=== PATIENT | female | born 1975 | race Caucasian/White ===

== ENCOUNTER 2016-11-15 08:56 | Inpatient (IN) | payer SELFPAY ==
[2016-11-15] VITALS (24 sets, daily range): BP systolic 101–147; BP diastolic 59–91
[~2016-11-15] VITALS: Ht 167.6 cm; Wt 100.2 kg
[2016-11-15] MEDS ORDERED: ONDANSETRON HCL 4MG/2ML VIAL IV STA (09:21)
[2016-11-15] MEDS ORDERED: SODIUM CHLORIDE 0.9% 1,000 ML IV ONE ×4 (09:21→09:24)
[2016-11-15 09:44] LABS: BG CARBOXYHEMOGLOBIN 0.3 % (0.5-1.5); BG DEOXYHEMOGLOBIN 1.7 % (0.0-5.0); BG HCO3 ACT 7.6 mmol/L (22.0-26.0); BG METHEMOGLOBIN 0.4 % (0.0-1.5); BG OXYGEN SATURATION 98.3 % (92.0-98.5); BG OXYHEMOGLOBIN 97.6 % (94.0-97.0); BG PCO2 15.2 mmHg (35.0-45.0); BG PH 7.314 (7.350-7.450); BG PO2 123.4 mmHg (75.0-100.0); BG SAMPLE SITE RIGHT RADIAL; BG TOTAL HEMOGLOBIN 18.2 g/dL (12.0-18.0); BG VENT MODE ROOM AIR
[2016-11-15 09:47] LABS: BASOPHILS % 0.2 % (0.0-2.0); EOSINOPHILS % 0.2 % (0.0-5.0); HEMATOCRIT. 53.1 % (36.0-48.0); HEMOGLOBIN. 17.7 g/dL (12.0-16.0); LYMPHOCYTES % 8.2 % (20.0-50.0); MEAN CORPUSCULAR HEMOGLOBIN 29.4 pg (28.0-32.0); MEAN CORPUSCULAR VOLUME 88.3 fL (81.0-99.0); MEAN PLATELET VOLUME 10.2 fl (7.4-10.4); MONOCYTES % 7.6 % (2.0-8.0); NEUTROPHILS % 83.8 % (40.0-76.0); PLATELET 256 x1000/uL (130-400); RED BLOOD CELL COUNT 6.01 mill/uL (4.2-5.4); RED CELL DISTRIBUTION WIDTH 16.1 % (11.6-14.6)
[2016-11-15 09:50] LABS: CLARITY URINE CLOUDY (CLEAR); COLOR URINE YELLOW (YELLOW); GLUCOSE URINE 3+ (NEGATIVE); KETONES URINE 4+ (NEGATIVE); LEUKOCYTE ESTERASE URINE NEGATIVE (NEGATIVE); NITRITE URINE NEGATIVE (NEGATIVE); OCCULT BLOOD URINE 3+ (NEGATIVE); PROTEIN URINE 2+ (NEGATIVE); SPECIFIC GRAVITY URINE 1.031 (1.005-1.030); UROBILINOGEN URINE 0.2 E.U./dL (0.2-1.0)
[2016-11-15 09:55] LABS: INR 1.3; PROTHROMBIN TIME 13.4 sec
[2016-11-15 10:00] LABS: CHLORIDE 91 mEq/L (98-107); PHOSPHORUS 3.7 mg/dL (2.5-4.9)
[2016-11-15] MEDS ORDERED: INSULIN REGULAR (DRIP) 100 UNITS in SODIUM CHLORIDE 0.9% 100 ML IV ONE ×4 (10:00)
[2016-11-15 10:05] LABS: CARBON DIOXIDE 9 mEq/L (21-32); TROPONIN I < 0.02 ng/mL (0.00-0.04)
[2016-11-15] MEDS ORDERED: POTASSIUM CHLORIDE 20MEQ TABLET SR PO ONE (10:15)
[2016-11-15] MEDS ORDERED: KCL 20MEQ/100ML PREMIX 100 ML IV ONE (10:15)
[2016-11-15] MEDS ORDERED: DIPHENHYDRAMINE 50MG/ML VIAL IV PRN (11:30)
[2016-11-15] MEDS ORDERED: ACETAMINOPHEN 325MG TABLET PO PRN (11:30)
[2016-11-15] MEDS ORDERED: DOCUSATE SODIUM 100MG CAPSULE PO PRN (11:30)
[2016-11-15] MEDS ORDERED: MAGNESIUM/ALUMINUM HYDROXIDE/SIMETHICONE 30ML UDC PO PRN (11:30)
[2016-11-15] MEDS ORDERED: CLONIDINE 0.1MG TABLET PO PRN (11:30)
[2016-11-15] MEDS ORDERED: DEXTROSE 50% WATER 50ML SYRINGE IV PRN ×2 (11:30)
[2016-11-15 11:32] LABS: PLATELET ESTIMATE NORMAL
[2016-11-15] MEDS: BLOOD SUGAR DIAGNOSTIC STRIP TEST SCH ×13 (12:29→23:30)
[2016-11-15] MEDS ORDERED: INSULIN REGULAR (DRIP) 100 UNITS in SODIUM CHLORIDE 0.9% 99 ML IV SCH (12:30)
[2016-11-15] MEDS ORDERED: SODIUM CHLORIDE 0.9% 1,000 ML IV SCH (12:30)
[2016-11-15] MEDS: SODIUM CHLORIDE 0.9% 1,000 ML IV SCH ×3 (12:49→16:07)
[2016-11-15 13:45] LABS: CHLORIDE 111 mEq/L (98-107)
[2016-11-15 13:51] LABS: CARBON DIOXIDE 11 mEq/L (21-32)
[2016-11-15] MEDS ORDERED: LEVOFLOXACIN 500MG PREMIX 100 ML IV SCH (15:00)
[2016-11-15 16:02] LABS: CARBON DIOXIDE 11 mEq/L (21-32); CHLORIDE 117 mEq/L (98-107)
[2016-11-15] MEDS ORDERED: DEXT 5% WATER + KCL 40MEQ/L 250 ML IV ONE (16:30)
[2016-11-15] MEDS: DEXT 5%/0.45% NACL 1000ML 1,000 ML IV PRN (16:45)
[2016-11-15] MEDS: LEVOFLOXACIN 500MG PREMIX 100 ML IV SCH (16:53)
[2016-11-15] MEDS ORDERED: POTASSIUM CHLORIDE INJ 40 MEQ in DEXT 5% WATER 250 ML IV NR (17:30)
[2016-11-15] MEDS ORDERED: POTASSIUM CHLORIDE 20MEQ TABLET SR PO SCH (18:30)
[2016-11-16] VITALS (47 sets, daily range): BP systolic 98–147; BP diastolic 36–89
[2016-11-16] MEDS: BLOOD SUGAR DIAGNOSTIC STRIP TEST SCH ×7 (00:30→20:19)
[2016-11-16] MEDS: ONDANSETRON HCL 4MG/2ML VIAL IV PRN ×2 (01:42→08:46)
[2016-11-16] MEDS: DEXT 5%/0.45% NACL 1000ML 1,000 ML IV PRN (01:46)
[2016-11-16 06:07] LABS: BASOPHILS % 0.6 % (0.0-2.0); EOSINOPHILS % 0.3 % (0.0-5.0); HEMATOCRIT. 41.9 % (36.0-48.0); HEMOGLOBIN. 14.7 g/dL (12.0-16.0); LYMPHOCYTES % 17.9 % (20.0-50.0); MEAN CORPUSCULAR HEMOGLOBIN 29.7 pg (28.0-32.0); MEAN CORPUSCULAR VOLUME 84.7 fL (81.0-99.0); MEAN PLATELET VOLUME 10.2 fl (7.4-10.4); NEUTROPHILS % 69.2 % (40.0-76.0); PLATELET 237 x1000/uL (130-400); RED BLOOD CELL COUNT 4.94 mill/uL (4.2-5.4); RED CELL DISTRIBUTION WIDTH 15.8 % (11.6-14.6)
[2016-11-16 06:42] LABS: AMYLASE 64 IU/L (25-115); CARBON DIOXIDE 22 mEq/L (21-32); CHLORIDE 105 mEq/L (98-107)
[2016-11-16 06:53] LABS: HDL CHOLESTEROL 36 mg/dL (40-59); LDL CHOLESTEROL 84 mg/dL (5-100)
[2016-11-16] MEDS: INSULIN LISPRO 100 UNITS/ML SUBCUT SCH ×4 (07:00→20:23)
[2016-11-16] MEDS ORDERED: DEXTROSE 50% WATER 50ML SYRINGE IV PRN (07:00)
[2016-11-16] MEDS: PANTOPRAZOLE SODIUM 40 MG/VIAL IV SCH (08:33)
[2016-11-16] MEDS ORDERED: MAGNESIUM 2 G PREMIX 50 ML IV NR (09:30)
[2016-11-16] MEDS ORDERED: POTASSIUM CHLORIDE INJ 40 MEQ in DEXT 5% WATER 250 ML IV NR ×2 (09:30→13:30)
[2016-11-16] MEDS: LEVOFLOXACIN 500MG PREMIX 100 ML IV SCH (17:47)
[2016-11-16] MEDS ORDERED: INSULIN DETEMIR UD 100 UNITS/ML SYR SUBCUT SCH (22:00)
[2016-11-17] VITALS (8 sets, daily range): BP systolic 105–135; BP diastolic 68–81
[2016-11-17] MEDS: INSULIN LISPRO 100 UNITS/ML SUBCUT SCH ×4 (06:38→21:00)
[2016-11-17] MEDS: BLOOD SUGAR DIAGNOSTIC STRIP TEST SCH ×4 (06:38→21:00)
[2016-11-17 06:43] LABS: BASOPHILS % 0.4 % (0.0-2.0); HEMOGLOBIN. 14.6 g/dL (12.0-16.0); LYMPHOCYTES % 25.9 % (20.0-50.0); MEAN CORPUSCULAR HEMOGLOBIN 29.6 pg (28.0-32.0); MEAN CORPUSCULAR VOLUME 83.3 fL (81.0-99.0); MEAN PLATELET VOLUME 9.6 fl (7.4-10.4); MONOCYTES % 14.4 % (2.0-8.0); NEUTROPHILS % 58.3 % (40.0-76.0); PLATELET 210 x1000/uL (130-400); RED BLOOD CELL COUNT 4.93 mill/uL (4.2-5.4); RED CELL DISTRIBUTION WIDTH 15.2 % (11.6-14.6)
[2016-11-17 06:46] LABS: CARBON DIOXIDE 21 mEq/L (21-32); CHLORIDE 92 mEq/L (98-107)
[2016-11-17] MEDS: METFORMIN HCL 500MG TABLET PO SCH ×3 (07:40→18:11)
[2016-11-17] MEDS: PANTOPRAZOLE SODIUM 40 MG/VIAL IV SCH ×2 (08:55→09:42)
[2016-11-17] MEDS: POTASSIUM CHLORIDE 20MEQ TABLET SR PO NR ×2 (08:56→11:15)
[2016-11-17] MEDS ORDERED: POTASSIUM CHLORIDE 20MEQ TABLET SR PO NR ×3 (10:00→17:45)
[2016-11-17] MEDS: ONDANSETRON HCL 4MG/2ML VIAL IV PRN (17:10)
[2016-11-17] MEDS: LEVOFLOXACIN 500MG PREMIX 100 ML IV SCH (17:20)
[2016-11-18] MEDS ORDERED: METFORMIN HCL 500MG SR TABLET 24HR PO SCH (17:00)
== END 2016-11-17 21:00 | disposition home or self-care (01) | DRG 420 ==
LOC: ER 09:47 → MICUSO 10:31 → 8WST 11-17 00:25
PROVIDERS: ADMIT Internal Medicine Nephrology; ATTEND Internal Medicine Nephrology
DX: E13.10 Other specified diabetes mellitus with ketoacidosis without coma (principal); K85.90 Acute pancreatitis without necrosis or infection, unspecified; E86.0 Dehydration; E66.9 Obesity, unspecified; I12.9 Hypertensive chronic kidney disease with stage 1 through stage 4 chronic kidney disease, or unspecified chronic kidney disease; E87.6 Hypokalemia; D72.829 Elevated white blood cell count, unspecified; N18.9 Chronic kidney disease, unspecified; Z83.3 Family history of diabetes mellitus; Z68.35 Body mass index [BMI] 35.0-35.9, adult; Z87.442 Personal history of urinary calculi
CPT/HCPCS: 36415; 36600; 71010; 76700; 78227; 80048; 80053; 80061; 81001; 81025; 82010; 82150; 82375; 82805; 82962; 83036; 83605; 83690; 83735; 83880; 84100; 84132; 84443; 84484; 85025; 85610; 87040; 87086; 93005; 96361; 96365; 96367; 96375; 99285; A9537; C9113; J1815; J1956; J2405; J3475; J3480; J7030; J7040; J7042; J7050; J7060

== ENCOUNTER 2016-11-25 08:59 | Inpatient (IN) | payer SELFPAY ==
[2016-11-25] VITALS (12 sets, daily range): BP systolic 107–141; BP diastolic 51–80
[~2016-11-25] VITALS: Ht 160 cm; Wt 98.0 kg
[2016-11-25] MEDS ORDERED: SODIUM CHLORIDE 0.9% 1,000 ML IV ONE (09:47)
[2016-11-25 10:04] LABS: BASOPHILS % 0.8 % (0.0-2.0); EOSINOPHILS % 0.3 % (0.0-5.0); HEMATOCRIT. 48.8 % (36.0-48.0); HEMOGLOBIN. 16.6 g/dL (12.0-16.0); LYMPHOCYTES % 17.6 % (20.0-50.0); MEAN CORPUSCULAR HEMOGLOBIN 29.5 pg (28.0-32.0); MEAN CORPUSCULAR VOLUME 86.8 fL (81.0-99.0); NEUTROPHILS % 69.3 % (40.0-76.0); PLATELET 390 x1000/uL (130-400); RED BLOOD CELL COUNT 5.62 mill/uL (4.2-5.4)
[2016-11-25 10:19] LABS: AMYLASE 43 IU/L (25-115); CARBON DIOXIDE 21 mEq/L (21-32); CHLORIDE 89 mEq/L (98-107); PHOSPHORUS 2.3 mg/dL (2.5-4.9); TROPONIN I < 0.02 ng/mL (0.00-0.04)
[2016-11-25 10:21] LABS: BG CARBOXYHEMOGLOBIN 0.3 % (0.5-1.5); BG DEOXYHEMOGLOBIN 1.9 % (0.0-5.0); BG HCO3 ACT 13.6 mmol/L (22.0-26.0); BG METHEMOGLOBIN 0.3 % (0.0-1.5); BG OXYGEN SATURATION 98.1 % (92.0-98.5); BG OXYHEMOGLOBIN 97.5 % (94.0-97.0); BG PCO2 23.7 mmHg (35.0-45.0); BG PH 7.378 (7.350-7.450); BG SAMPLE SITE RIGHT RADIAL; BG TOTAL HEMOGLOBIN 17.6 g/dL (12.0-18.0); BG VENT MODE ROOM AIR
[2016-11-25 10:27] LABS: BETA HYDROXYBUTYRATE 9.5 mMol/L (0.0-0.3)
[2016-11-25 10:29] LABS: HCG SCREEN NEGATIVE
[2016-11-25 10:34] LABS: CLARITY URINE CLEAR (CLEAR); COLOR URINE YELLOW (YELLOW); GLUCOSE URINE 3+ (NEGATIVE); KETONES URINE 4+ (NEGATIVE); LEUKOCYTE ESTERASE URINE NEGATIVE (NEGATIVE); NITRITE URINE NEGATIVE (NEGATIVE); OCCULT BLOOD URINE TRACE (NEGATIVE); PH URINE 6.5 (4.5-8.0); PROTEIN URINE 1+ (NEGATIVE)
[2016-11-25] MEDS ORDERED: INSULIN REGULAR (DRIP) 100 UNITS in SODIUM CHLORIDE 0.9% 100 ML IV ONE (11:00)
[2016-11-25] MEDS: INSULIN REGULAR (DRIP) 100 UNITS in SODIUM CHLORIDE 0.9% 100 ML IV SCH ×2 (11:25→12:10)
[2016-11-25] MEDS ORDERED: CEFTRIAXONE 1 G PREMIX 50 ML IV STA (12:16)
[2016-11-25] MEDS ORDERED: DEXTROSE 50% WATER 50ML SYRINGE IV PRN ×3 (13:00→19:15)
[2016-11-25] MEDS: BLOOD SUGAR DIAGNOSTIC STRIP TEST SCH ×10 (13:14→21:23)
[2016-11-25] MEDS ORDERED: HYDROCODONE/ACETAMINOPHEN 5/325MG TABLET PO PRN (13:30)
[2016-11-25] MEDS ORDERED: IPRATROPIUM/ALBUTEROL 0.5-3(2.5)MG/3ML NEB INH PRN (13:30)
[2016-11-25] MEDS ORDERED: NA PHOS,M-B/NA PHOS,DI-BA ENEMA 118ML PR PRN (13:30)
[2016-11-25] MEDS ORDERED: ONDANSETRON HCL 4MG/2ML VIAL IV PRN (13:30)
[2016-11-25] MEDS ORDERED: ACETAMINOPHEN 650MG SUPP PR PRN (13:30)
[2016-11-25] MEDS ORDERED: CLONIDINE 0.1MG TABLET PO PRN (13:30)
[2016-11-25] MEDS ORDERED: ACETAMINOPHEN 325MG TABLET PO PRN (13:30)
[2016-11-25] MEDS ORDERED: ACETAMINOPHEN 650MG/20.3ML UDC GT PRN (13:30)
[2016-11-25] MEDS ORDERED: DIPHENHYDRAMINE 50MG/ML VIAL IV PRN (13:30)
[2016-11-25] MEDS ORDERED: MAGNESIUM/ALUMINUM HYDROXIDE/SIMETHICONE 30ML UDC PO PRN (13:30)
[2016-11-25] MEDS ORDERED: SODIUM CHLORIDE 0.45% 1,000 ML IV SCH ×2 (13:39→15:00)
[2016-11-25] MEDS ORDERED: LIDOCAINE HCL/PF 1% 2ML VIAL ONE (13:55)
[2016-11-25] MEDS ORDERED: ENOXAPARIN 40MG/0.4ML SYR SUBCUT SCH (14:00)
[2016-11-25] MEDS ORDERED: SODIUM CHLORIDE 0.9% 1,000 ML IV SCH (14:00)
[2016-11-25] MEDS ORDERED: INSULIN REGULAR (DRIP) 100 UNITS in SODIUM CHLORIDE 0.9% 100 ML IV SCH (14:00)
[2016-11-25] MEDS: SODIUM CHLORIDE 0.9% INJ 3ML FLUSH IVF SCH ×2 (14:07→21:30)
[2016-11-25] MEDS ORDERED: PNEUMOCOCCAL 23-VAL P-SAC VAC 0.5 ML IM ONE (20:00)
[2016-11-25 20:26] LABS: CLARITY URINE CLEAR (CLEAR); COLOR URINE YELLOW (YELLOW); GLUCOSE URINE 3+ (NEGATIVE); KETONES URINE 4+ (NEGATIVE); LEUKOCYTE ESTERASE URINE NEGATIVE (NEGATIVE); NITRITE URINE NEGATIVE (NEGATIVE); OCCULT BLOOD URINE TRACE (NEGATIVE); PH URINE 6.5 (4.5-8.0); PROTEIN URINE 2+ (NEGATIVE); SPECIFIC GRAVITY URINE 1.032 (1.005-1.030)
[2016-11-25] MEDS: INSULIN LISPRO 100 UNITS/ML SUBCUT SCH (21:00)
[2016-11-25] MEDS ORDERED: CEFTRIAXONE 1 G PREMIX 50 ML IV SCH (21:00)
[2016-11-25 21:28] LABS: *AMPHETAMINES SCREEN URINE NEGATIVE (NEGATIVE); *BARBITURATES SCREEN URINE NEGATIVE (NEGATIVE); *BENZODIAZEPINES SCREEN URINE NEGATIVE (NEGATIVE); *COCAINE SCREEN URINE NEGATIVE (NEGATIVE); CANNABINOID URINE SCREEN NEGATIVE (NEGATIVE); METHADONE URINE SCREEN NEGATIVE (NEGATIVE); OPIATES URINE SCREEN NEGATIVE (NEGATIVE); PHENCYCLIDINE URINE SCREEN NEGATIVE (NEGATIVE)
[2016-11-25] MEDS: POTASSIUM CHLORIDE INJ 10 MEQ in DEXT 5%/0.45% NACL 1000ML 1,000 ML IV SCH (21:30)
[2016-11-26] VITALS (14 sets, daily range): BP systolic 99–123; BP diastolic 44–82
[2016-11-26] MEDS: POTASSIUM CHLORIDE INJ 10 MEQ in DEXT 5%/0.45% NACL 1000ML 1,000 ML IV SCH (04:09)
[2016-11-26 04:40] LABS: BASOPHILS % 0.6 % (0.0-2.0); EOSINOPHILS % 1.2 % (0.0-5.0); HEMATOCRIT. 39.6 % (36.0-48.0); HEMOGLOBIN. 13.5 g/dL (12.0-16.0); LYMPHOCYTES % 33.7 % (20.0-50.0); MEAN CORPUSCULAR HEMOGLOBIN 29.5 pg (28.0-32.0); MEAN CORPUSCULAR VOLUME 86.5 fL (81.0-99.0); MEAN PLATELET VOLUME 7.9 fl (7.4-10.4); MONOCYTES % 13.4 % (2.0-8.0); NEUTROPHILS % 51.1 % (40.0-76.0); PLATELET 299 x1000/uL (130-400); RED BLOOD CELL COUNT 4.58 mill/uL (4.2-5.4); RED CELL DISTRIBUTION WIDTH 16.1 % (11.6-14.6)
[2016-11-26 04:57] LABS: CARBON DIOXIDE 19 mEq/L (21-32); CHLORIDE 95 mEq/L (98-107); HDL CHOLESTEROL 27 mg/dL (40-59); LDL CHOLESTEROL 102 mg/dL (5-100)
[2016-11-26] MEDS: SODIUM CHLORIDE 0.9% INJ 3ML FLUSH IVF SCH ×3 (05:10→21:21)
[2016-11-26] MEDS ORDERED: POTASSIUM CHLORIDE INJ 40 MEQ in DEXT 5% WATER 250 ML IV NR (05:45)
[2016-11-26] MEDS: BLOOD SUGAR DIAGNOSTIC STRIP TEST SCH ×4 (08:37→20:11)
[2016-11-26] MEDS: ENOXAPARIN 30MG/0.3ML SYR SUBCUT SCH ×2 (08:40→21:01)
[2016-11-26] MEDS: INSULIN LISPRO 100 UNITS/ML SUBCUT SCH ×4 (08:41→21:02)
[2016-11-26] MEDS ORDERED: INSULIN DETEMIR UD 100 UNITS/ML SYR SUBCUT SCH (12:30)
[2016-11-26] MEDS ORDERED: LEVVL SUBCUT (16:20)
[2016-11-26] MEDS ORDERED: POTASSIUM CHLORIDE 20MEQ TABLET SR PO NR ×2 (16:30→21:00)
[2016-11-26] MEDS: INSULIN DETEMIR UD 100 UNITS/ML SYR SUBCUT SCH (21:03)
[2016-11-27] VITALS: BP 118/86
[2016-11-27 04:00] VITALS: BP 114/81
[2016-11-27] MEDS: BLOOD SUGAR DIAGNOSTIC STRIP TEST SCH ×3 (06:16→16:20)
[2016-11-27] MEDS: INSULIN LISPRO 100 UNITS/ML SUBCUT SCH ×3 (06:32→17:50)
[2016-11-27 08:00] VITALS: BP 118/76
[2016-11-27 08:48] LABS: CARBON DIOXIDE 26 mEq/L (21-32); CHLORIDE 95 mEq/L (98-107)
[2016-11-27] MEDS: ENOXAPARIN 30MG/0.3ML SYR SUBCUT SCH (09:08)
[2016-11-27] MEDS: INSULIN DETEMIR UD 100 UNITS/ML SYR SUBCUT SCH (09:09)
[2016-11-27] MEDS ORDERED: POTASSIUM CHLORIDE 20MEQ TABLET SR PO NR ×2 (09:30→13:00)
[2016-11-27] MEDS: SODIUM CHLORIDE 0.9% INJ 3ML FLUSH IVF SCH ×2 (09:41→16:15)
[2016-11-27 12:00] VITALS: BP 106/74
[2016-11-27 16:00] VITALS: BP 110/73
[2016-11-27 17:40] VITALS: BP 110/73
== END 2016-11-27 20:05 | disposition home or self-care (01) | DRG 420 ==
LOC: ER 09:00 → CVICU 10:27 → EDBEDREQ 10:33 → ENRESERV 10:50 → 8WST 11-26 10:58
PROVIDERS: ADMIT Family Medicine; ATTEND Family Medicine
DX: E13.10 Other specified diabetes mellitus with ketoacidosis without coma (principal); E87.8 Other disorders of electrolyte and fluid balance, not elsewhere classified; N39.0 Urinary tract infection, site not specified; K31.84 Gastroparesis; E86.0 Dehydration; E78.5 Hyperlipidemia, unspecified; E66.9 Obesity, unspecified; Z68.38 Body mass index [BMI] 38.0-38.9, adult; Z91.14 Patient's other noncompliance with medication regimen; Z91.19 Patient's noncompliance with other medical treatment and regimen; Z85.72 Personal history of non-Hodgkin lymphomas
CPT/HCPCS: 36415; 36600; 71010; 80048; 80053; 80061; 80305; 81001; 81003; 82010; 82150; 82375; 82805; 82962; 83036; 83690; 83735; 84100; 84132; 84484; 84703; 85025; 87086; 90732; 93005; 96360; 96372; 99291; J0696; J1650; J1815; J2405; J3480; J3490; J7030; J7050; J7060